=== PATIENT | male | born 1970 | race Caucasian/White ===

== ENCOUNTER → 2019-10-30 | Outpatient (CLI) | payer OTHER ==
--- NOTE | 2019-10-30 14:29 | Diagnostic Imaging Report ---
INDICATION: Right-sided throat pain. Sonographic interrogation of the area of pain in the right neck was performed. No sonographic abnormality is seen. No solid or cystic mass is detected. IMPRESSION: No sonographic abnormality is detected. Dictated by: Dictated on workstation # [id number]
== END ==
LOC: RAD 12:55
PROVIDERS: ATTEND Otolaryngology Otolaryngology/Facial Plastic Surgery
DX: R07.0 Pain in throat (principal)
CPT/HCPCS: 76536